=== PATIENT | male | born 1995 | race Caucasian/White ===

== ENCOUNTER 2018-12-03 08:39 | Outpatient (CLI) | payer OTHER ==
[2018-12-03] MEDS ORDERED: ROPivacaine/PF 0.2%, 10 ML ONE (08:50)
[2018-12-03] MEDS ORDERED: BUPIVACAINE/PF 0.5% ONE (08:51)
[2018-12-03] MEDS ORDERED: LIDOCAINE-MPF 1%, 5ML ONE ×2 (08:51→09:20)
[2018-12-03] MEDS ORDERED: GADOBUTROL 2 MMOL/2 ML VIAL ONE (09:59)
[2018-12-03] MEDS ORDERED: OMNIPAQUE 300 MG/ML, 10ML VIAL ONE (09:59)
== END 2018-12-03 23:59 | disposition home or self-care (01) ==
LOC: RAD 08:39
PROVIDERS: ATTEND Physician Assistant Surgical
DX: M25.811 Other specified joint disorders, right shoulder (principal)
CPT/HCPCS: 23350; 73040; 73222; A9585; Q9967; J2795